=== PATIENT | female | born 1970 | race African-American/Black ===

== ENCOUNTER 2019-10-13 20:27 | Emergency (ER) | payer BC, OTHER ==
[~2019-10-13] VITALS: Ht 167.6 cm; Wt 104.3 kg
--- NOTE | 2019-10-13 20:30 | NUR ---
PT CAME INTO THE ED C/O L SIDED CHEST PAIN RD TO L SHOULDER BLADE WHICH STARTED AT 0900 THIS MORNING. -[place] -DIAPHOSIS. PT AAOX4,NO ACUTE DISTRESS NOTED AT THIS TIME. PT CONNECTED TO THE MONITOR AND POX. EKG AT BEDSIDE
--- NOTE | 2019-10-13 20:35 | NUR ---
IV LINE ESTABLISHED RAC 20 G. BLOOD COLLECT ED AND SENT TO LAB
[2019-10-13] MEDS ORDERED: ASPIRIN 325 MG TABLET ONE (20:40)
--- NOTE | 2019-10-13 20:50 | NUR ---
XRAY AT BEDSIDE
[2019-10-13] MEDS ORDERED: ASPIRIN 325 MG TABLET PO ONE (21:00)
[2019-10-13 21:02] LABS: BASOPHILS # (AUTO) 0.1 /CMM (0.0-0.2); EOSINOPHILS % (AUTO) 2.6 % (0.0-6.0); HEMATOCRIT 31 % (33-45); HEMOGLOBIN 9.8 g/dL (11.5-14.8); LYMPHOCYTES # (AUTO) 2.7 /CMM (0.8-4.8); LYMPHOCYTES % (AUTO) 43.2 % (20.0-44.0); MEAN CORPUSCULAR HGB CONC 32 g/dl (31.0-36.0); MEAN CORPUSCULAR VOLUME 67 fL (82-100); MONOCYTES # (AUTO) 0.4 /CMM (0.1-1.30); NEUTROPHILS # (AUTO) 2.9 /CMM (1.8-8.9); NEUTROPHILS % (AUTO) 46.2 % (43.0-81.0); PLATELET COUNT (AUTO) 288 /CMM (150-450); RED BLOOD CELL COUNT(AUTO) 4.57 MIL/uL (4.0-5.2); WHITE BLOOD COUNT (AUTO) 6.4 K/uL (4.3-11.0)
[2019-10-13 21:09] LABS: CALCIUM, SERUM 8.9 mg/dL (8.5-10.1); CARBON DIOXIDE 25 mmol/L (21-32); CHLORIDE 106 mmol/L (98-107); CREATININE 0.8 mg/dL (0.6-1.3); GLUCOSE 94 mg/dL (74-106); SODIUM SERUM 140 mmol/L (136-145); UREA NITROGEN, BLOOD 12 mg/dL (7-18)
--- NOTE | 2019-10-13 21:51 | NUR ---
Patient discharged to home in stable condition. Written and verbal after care instructions given. Patient verbalizes understanding of instruction.IV removed. Catheter intact and site benign. Pressure and 4x4 applied to site. No bleeding noted.
[2019-10-13 21:52] VITALS: BP 127/84
[2019-10-13 22:20] LABS: EOSINOPHILS % (MANUAL) 1 % (0-4); LYMPHOCYTES % (MANUAL) 35 % (16-48); MONOCYTES % (MANUAL) 6 % (0-11.0); NEUTROPHILS % (MANUAL) 58 (42-76)
== END 2019-10-13 21:52 | disposition home or self-care (01) ==
LOC: ER 20:29
DX: R07.89 Other chest pain (principal); Z98.890 Other specified postprocedural states; Z60.2 Problems related to living alone
CPT/HCPCS: 36415; 71045-TC; 80048-TC; 84484-TC; 85025-TC